=== PATIENT | female | born 1970 | race Caucasian/White ===

== ENCOUNTER 2016-07-24 05:17 | Day surgery (SDC) | payer BC, OTHER ==
[2016-07-22 10:43] LABS: APPEARANCE,URINE CLEAR; BILIRUBIN,URINE NEGATIVE (NEGATIVE); GLUCOSE, URINE NEGATIVE (NEGATIVE); KETONES,URINE NEGATIVE (NEGATIVE); LEUKOCYTE ESTERASE,URINE NEGATIVE (NEGATIVE); NITRITE,URINE NEGATIVE (NEGATIVE); PROTEIN,URINE NEGATIVE (NEGATIVE); URINE SPECIFIC GRAVITY 1.025; UROBILINOGEN,URINE NEGATIVE mg/dL (<2.0)
[2016-07-22 10:56] LABS: HEMATOCRIT 43.3 % (36.0-47.0); HEMOGLOBIN 14.6 g/dL (12.0-15.5); HGB HCT DIFFERENCE 0.5; MEAN CORPUSCULAR HEMOGLOBIN 30.3 pg (27.0-33.4); MEAN CORPUSCULAR HGB CONC 33.6 g/dL (32.0-36.0); MEAN CORPUSCULAR VOLUME 90 fl (80-97); RED CELL DISTRIBUTION WIDTH 13.1 % (11.5-14.0); WHITE BLOOD COUNT 6.9 10^3/uL (4.0-10.5)
[~2016-07-24 05:17] MED LIST: CEFAZOLIN 2 GM/D5W RTU 2 GM/50 ML RTUPB IV PRN; LACTATED RINGERS 1000 ML IV PRN; LIDOCAINE 0.5% INJ-PF (5 MG/ML) 50 ML SDV SUBCUT PRN
[2016-07-24] MEDS ORDERED: MIDAZOLAM 2 MG/2 ML INJ ONE (06:23)
[2016-07-24] MEDS ORDERED: PROPOFOL INJ 200 MG/20 ML VIAL IV ONE (06:23)
[2016-07-24] MEDS ORDERED: FENTANYL CITRATE INJ/PF 100 MCG/2 ML AMPUL ONE ×2 (06:23)
[2016-07-24] MEDS ORDERED: ACETAMINOPHEN 100 ML IV ONE (06:24)
[2016-07-24] MEDS ORDERED: MORPHINE SULFATE 10 MG/ML INJ ONE (06:24)
[2016-07-24] MEDS ORDERED: DIPHENHYDRAMINE HCL 50 MG/ML VIAL IV PRN (08:17)
[2016-07-24] MEDS ORDERED: MEPERIDINE HCL/PF INJ 25 MG/1 ML DISP.SYRIN IV PRN (08:17)
[2016-07-24] MEDS ORDERED: PROMETHAZINE HCL INJ 25 MG/1 ML VIAL IV PRN ×2 (08:17)
[2016-07-24] MEDS ORDERED: FENTANYL CITRATE INJ/PF 100 MCG/2 ML AMPUL IV PRN ×3 (08:17)
[2016-07-24] MEDS ORDERED: MORPHINE SULFATE 10 MG/ML INJ IV PRN (08:17)
[2016-07-24] MEDS ORDERED: OXYCODONE-ACETAMINOPHEN 5-325 MG TABLET PO PRN ×4 (08:17→09:31)
[2016-07-24] MEDS: FENTANYL CITRATE INJ/PF 100 MCG/2 ML AMPUL ONE ×2 (09:00→09:05)
[2016-07-24] MEDS ORDERED: IBUPROFEN 800 MG TABLET PO PRN (09:30)
[2016-07-24] MEDS ORDERED: MORPHINE SULFATE 10 MG/ML INJ IM PRN (09:30)
[2016-07-24] MEDS ORDERED: RINGERS SOLUTION,LACTATED 1,000 ML IV PRN (09:31)
[2016-07-24] MEDS ORDERED: SUCCINYLCHOLINE CHLORIDE INJ 200 MG/10 ML VIAL ONE (10:57)
[2016-07-24] MEDS ORDERED: LIDOCAINE 2% INJ-PF (20 MG/ML) 10 ML AMPUL ONE (10:57)
[2016-07-24] MEDS ORDERED: ONDANSETRON HCL INJ/PF 4 MG/2 ML SDV ONE (10:57)
[2016-07-24] MEDS ORDERED: GLYCOPYRROLATE INJ 0.4 MG/2 ML VIAL ONE (10:57)
[2016-07-24] MEDS ORDERED: NEOSTIGMINE METHYLSULFATE 10 MG/10 ML VIAL ONE (10:57)
[2016-07-24] MEDS ORDERED: DEXAMETHASONE SOD PHOSPHATE INJ 4 MG/1 ML VIAL ONE (10:57)
[2016-07-24] MEDS ORDERED: ROCURONIUM BROMIDE INJ 50 MG/5 ML VIAL IV ONE (10:57)
[2016-07-24] MEDS ORDERED: METOCLOPRAMIDE HCL INJ/PF 10 MG/2 ML SDV ONE (10:57)
[2016-07-24 11:44] VITALS: BP 154/86
--- NOTE | 2016-09-02 13:28 | OPERATIVE REPORT E ---
Operative Report NAME: VINCENT RICO : 1970 AGE: 46Y DATE OF SURGERY: 07/24/2016 ROOM: PREOPERATIVE DIAGNOSES: 1. Menorrhagia. 2. Submucosal fibroid. 3. Patient desiring sterilization. POSTOPERATIVE DIAGNOSES: 1. Menorrhagia. 2. Submucosal fibroid. 3. Patient desiring sterilization. PROCEDURE: 1. Laparoscopic bilateral tubal ligation using fulguration. 2. MyoSure to remove endometrial polyp. 3. Novasure endometrial ablation. SURGEON: Smooth Lamb D.O. RACK ROOM WORKER: None. COMPLICATIONS: None. PATHOLOGY: Endometrial polyp. ESTIMATED BLOOD LOSS: 10 mL. ANESTHESIA: General endotracheal anesthesia. FINDINGS: 1. Approximately 1 cm endometrial polyp noticed in the endometrial cavity with no evidence of the fibroid impinging on the intrauterine cavity. 2. Novasure settings were width 4.1 cm, length was 4.0 cm, power was at 20, and total therapy time was 2 minutes. PROCEDURE: The patient was taken to the operating room where she was placed in dorsal supine position upon the operating room table. She was then administered general endotracheal anesthesia. She was then placed in a dorsal lithotomy position. She was then prepped and draped in the normal sterile fashion. A 10 mm incision was made at the base of the patient's umbilicus where a direct Optiview scope was passed through this incision into the peritoneal cavity. Once inside the peritoneal cavity, CO2 gas was connected and opening pressure was noted to be less than 5. The patient's abdomen was then allowed to fill with CO2 gas. A survey revealed normal pelvic anatomy. Using the Kleppinger device, approximately 3 cm segment of each fallopian tube was fulgurated without difficulty and with excellent hemostasis. Following this, all instruments, ports, and gas were removed from the patient's abdomen. The 10 mm fascial defect was closed using [id number] suture of 0 Vicryl and the skin was closed using 4-0 Vicryl in a subcuticular fashion. Attention was then returned down to the patient's vagina where an open-sided speculum was placed inside the patient's vagina and the cervix was easily visualization. It was grasped on its anterior lip with a single-tooth tenaculum and uterus was then sounded to 8 cm. The patient's cervix was then dilated to a 24-Georgian using Hegar dilators. A 30-degree hysteroscope was passed through the cervix into the uterus where a hysteroscopic examination was performed which revealed the endometrial polyp that was present, approximately 1 cm in size but with no evidence of fibroid encroaching on the endometrial cavity. Using the MyoSure device, the endometrial polyp was removed in its entirety all the way down to its base. Following this, the MyoSure device was removed and the Novasure device was placed inside the patient's uterus. The settings were width 4.1 cm, length was 4.0 cm, power was set at 20, and total therapy time was 2 minutes. Following completion of the therapy, the Novasure device was removed without difficulty. At this point in time, all instruments were removed from the patient's vagina. There was excellent hemostasis noted. At this point in time, the procedure was terminated. All sponge, lap, and needle counts were correct x2. The patient tolerated the procedure well. The patient was taken to the recovery room in stable condition. DICTATING PHYSICIAN: Smooth Lamb DO [id number] PHY#: [id number] ID: [id number] JOB#: [id number] ACCT: [id number] cc:Smooth Lamb D.O. >
== END 2016-07-24 11:17 | disposition home or self-care (01) ==
LOC: OROUT 05:17
PROVIDERS: ATTEND Obstetrics & Gynecology
PROC: 0U5B8ZZ Destruction of Endometrium, Via Natural or Artificial Opening Endoscopic (ICD-10-PCS; principal; 2016-07-24 07:30)
PROC: 0U574ZZ Destruction of Bilateral Fallopian Tubes, Percutaneous Endoscopic Approach (ICD-10-PCS; 2016-07-24 07:30)
DX: N92.0 Excessive and frequent menstruation with regular cycle (principal); Z30.2 Encounter for sterilization; D25.0 Submucous leiomyoma of uterus; N84.0 Polyp of corpus uteri; I10 Essential (primary) hypertension; Z88.2 Allergy status to sulfonamides
CPT/HCPCS: 36415; 85027; 81025; 81001; 88305 ×2; 58563; 58670; J2250; J3490 ×2; J1100; J3010; J2765; J2270; J0330; J2405; J2704; J0690; J0131; 840